=== PATIENT | female | born 2000 | race Caucasian/White ===

== ENCOUNTER 2020-09-14 09:05 | Outpatient (CLI) | payer OTHER, SELFPAY ==
[2020-09-14 09:26] LABS: Hematocrit 34.9 % (35.0-49.0); Hemoglobin 11.2 g/dL (12.0-15.0); Mean Corpuscular HGB Conc 32.1 g/dL (32.0-36.0); Mean Corpuscular Hemoglobin 30.4 pg (27.0-31.0); Mean Corpuscular Volume 94.8 fL (78.0-102.0); Mean Platelet Volume 9.7 fl (9.2-11.8); Platelet Count Result 329 K/mm3 (150-420); Red Blood Count 3.68 M/mm3 (4.20-5.40); Red Cell Distribution Width 12.3 % (11.6-14.4); White Blood Count 9.4 K/mm3 (4.8-10.8)
[2020-09-14 09:37] LABS: INR 1.5
[2020-09-14 10:05] LABS: Alanine Aminotransferase 78 U/L (14-59); Albumin Level 2.9 g/dL (3.4-5.0); Alkaline Phosphatase 119 U/L (46-116); Anion Gap 7 mmol/L (8-16); Aspartate Amino Transferase 25 U/L (15-37); Bilirubin,Total 0.3 mg/dL (0.00-1.00); Blood Urea Nitrogen 12 mg/dL (7-18); Calcium 9.1 mg/dL (8.5-10.1); Carbon Dioxide 30 mmol/L (21-32); Chloride 104 mmol/L (98-108); Estimated Glomerular Filt Rate > 60; Glucose 94 mg/dL (70-99); Osmolality Calculated 291 mOsm/kg (285-295); Potassium 3.9 mmol/L (3.5-5.1); Sodium 141 mmol/L (136-145); Total Protein 6.7 g/dL (6.4-8.2)
[2020-09-16 21:12] LABS: Antithrombin III Activity 102 % normal (80-135)
== END 2020-09-14 09:06 | disposition home or self-care (01) ==
PROVIDERS: PCP Nurse Practitioner Family; Visit Provider Nurse Practitioner Family
DX: I26.99 Other pulmonary embolism without acute cor pulmonale (principal); D68.59 Other primary thrombophilia; O99.119 Other diseases of the blood and blood-forming organs and certain disorders involving the immune mechanism complicating pregnancy, unspecified trimester; D69.6 Thrombocytopenia, unspecified
CPT/HCPCS: 36415; 80053; 81241; 85027; 85300; 85303; 85306; 85610

== ENCOUNTER 2020-09-20 13:45 | Outpatient (CLI) | payer OTHER, SELFPAY ==
--- NOTE | ~2020-09-20 | XR_ITS ---
EXAMINATION: XR chest 2V DATE: 09/20/2020 14:16 INDICATION: Shortness of breath. Pulmonary embolism. TECHNIQUE: Frontal and lateral views of the chest were obtained on 3 radiographs. COMPARISON: None. FINDINGS: There are airspace opacities at right lung base. There is a small right pleural effusion. T he pneumothorax. The heart size is normal. IMPRESSION: 1. Airspace opacities at right lung base, consistent with atelectasis versus pneumonia versus infarct . 2. Small right pleural effusion. Reviewed, dictated and finalized at location B. ATRIC PHYSICIAN IMPRESSION: 1. Airspace opacities at right lung base, consistent with atelectasis versus pn eumonia versus infarct. 2. Small right pleural effusion.
[2020-09-20 14:01] LABS: Basophils Absolute Auto 0.05 K/mm3 (0.00-0.10); Basophils Percent Auto 0.4 % (0.0-1.0); Eosinophils Absolute Auto 0.28 K/mm3 (0.02-0.50); Eosinophils Percent Auto 2.4 % (1.0-6.0); Hematocrit 38.4 % (35.0-49.0); Hemoglobin 12.5 g/dL (12.0-15.0); Immature Granulocyte Absolute 0.02 K/mm3 (0.00-0.00); Immature Granulocyte Percent A 0.2 % (0.0-0.0); Lymphocytes Absolute Auto 2.16 K/mm3 (1.10-4.50); Lymphocytes Percent Auto 18.2 % (18.0-42.0); Mean Corpuscular HGB Conc 32.6 g/dL (32.0-36.0); Mean Corpuscular Hemoglobin 30.2 pg (27.0-31.0); Mean Corpuscular Volume 92.8 fL (78.0-102.0); Mean Platelet Volume 9.7 fl (9.2-11.8); Monocytes Percent Auto 6.7 % (2.0-11.0); Neutrophils Absolute Auto 8.6 K/mm3 (1.7-7.2); Neutrophils Percent Auto 72.1 % (50.0-70.0); Platelet Count Result 415 K/mm3 (150-420); Red Blood Count 4.14 M/mm3 (4.20-5.40); Red Cell Distribution Width 12.1 % (11.6-14.4); White Blood Count 11.9 K/mm3 (4.8-10.8)
[2020-09-20 14:26] LABS: INR 1.6; Prothrombin Time 17.4 Seconds (9.50-12.10)
[2020-09-20 14:50] LABS: Alanine Aminotransferase 41 U/L (14-59); Albumin Level 3.5 g/dL (3.4-5.0); Alkaline Phosphatase 114 U/L (46-116); Amylase 38 U/L (25-115); Anion Gap 11 mmol/L (8-16); Aspartate Amino Transferase 19 U/L (15-37); Bilirubin,Total 0.2 mg/dL (0.00-1.00); Blood Urea Nitrogen 12 mg/dL (7-18); Calcium 9.7 mg/dL (8.5-10.1); Carbon Dioxide 27 mmol/L (21-32); Chloride 103 mmol/L (98-108); Estimated Glomerular Filt Rate > 60; Glucose 85 mg/dL (70-99); Lipase 128 U/L (73-393); Osmolality Calculated 290 mOsm/kg (285-295); Potassium 4.2 mmol/L (3.5-5.1); Sodium 141 mmol/L (136-145); Total Protein 7.5 g/dL (6.4-8.2)
== END 2020-09-20 13:46 | disposition home or self-care (01) ==
PROVIDERS: PCP Nurse Practitioner Family; Visit Provider Nurse Practitioner Family
DX: I26.99 Other pulmonary embolism without acute cor pulmonale (principal); R10.11 Right upper quadrant pain
CPT/HCPCS: 36415; 71046; 80053; 82150; 83690; 85025; 85610

== ENCOUNTER 2020-12-21 14:18 | Outpatient (RCR) | payer OTHER, SELFPAY ==
[2020-09-27 12:06] LABS: INR 2.1; Prothrombin Time 21.3 Seconds (9.50-12.10)
[2020-10-04 15:41] LABS: INR 2.3; Prothrombin Time 23.6 Seconds (9.50-12.10)
[2020-10-12 12:28] LABS: INR 1.6; Prothrombin Time 16.4 Seconds (9.50-12.10)
[2020-10-21 14:02] LABS: INR 1.9; Prothrombin Time 19.5 Seconds (9.50-12.10)
[2020-11-04 13:32] LABS: INR 1.2; Prothrombin Time 13.1 Seconds (9.50-12.10)
[2020-11-08 14:43] LABS: INR 1.1
[2020-11-18 16:27] LABS: INR 2.4; Prothrombin Time 24.1 Seconds (9.50-12.10)
[2020-12-09 17:53] LABS: INR 1.3
[2020-12-21 14:59] LABS: INR 1.8; Prothrombin Time 18.7 Seconds (9.50-12.10)
== END 2020-12-26 23:59 | disposition home or self-care (01) ==
LOC: CHSLAB 14:18
PROVIDERS: PCP Nurse Practitioner Family; Visit Provider Nurse Practitioner Family
DX: D68.51 Activated protein C resistance (principal); D68.59 Other primary thrombophilia; O99.119 Other diseases of the blood and blood-forming organs and certain disorders involving the immune mechanism complicating pregnancy, unspecified trimester; D69.6 Thrombocytopenia, unspecified
CPT/HCPCS: 36415; 85610

== ENCOUNTER 2021-01-09 10:58 | Outpatient (NON) | payer OTHER, SELFPAY ==
[2021-01-09 11:35] LABS: Prothrombin Time 21.1 Seconds (9.50-12.10)
== END 2021-01-09 10:59 | disposition home or self-care (01) ==
LOC: CHSLAB 11:00
PROVIDERS: PCP Nurse Practitioner Family; Visit Provider Nurse Practitioner Family
DX: D68.59 Other primary thrombophilia (principal)
CPT/HCPCS: 36415; 85610

== ENCOUNTER 2021-03-01 16:59 | Outpatient (RCR) | payer OTHER, SELFPAY ==
[2021-01-05 17:51] LABS: INR 1.5; Prothrombin Time 16.1 Seconds (9.50-12.10)
[2021-03-01 17:25] LABS: INR 1.1; Prothrombin Time 11.9 Seconds (9.50-12.10)
== END 2021-04-05 23:59 | disposition home or self-care (01) ==
LOC: CHSLAB 16:59
PROVIDERS: PCP Nurse Practitioner Family; Visit Provider Nurse Practitioner Family
DX: D68.51 Activated protein C resistance (principal); D68.59 Other primary thrombophilia; O99.119 Other diseases of the blood and blood-forming organs and certain disorders involving the immune mechanism complicating pregnancy, unspecified trimester; D69.6 Thrombocytopenia, unspecified
CPT/HCPCS: 36415; 85610

== ENCOUNTER 2021-06-13 13:25 | Outpatient (CLI) | payer OTHER, SELFPAY ==
--- NOTE | ~2021-06-13 | US_ITS ---
EXAMINATION: US venous doppler LE RT EXAM DATE: 06/13/2021 14:00 INDICATION: M79.604 - Pain in right leg. TECHNIQUE: Multiple grayscale, color flow and Doppler images of the right lower extremity deep venous system were obtained and reviewed. There is no prior study for comparison. FINDINGS: The right common femoral, femoral and profunda veins demonstrate normal color flow, respira tory variation, augmentation and compressibility. Compressibility, color flow confirmed within the r ight popliteal, posterior tibial, peroneal, and greater saphenous veins. IMPRESSION: No right lower extremity deep venous thrombosis. Reviewed, dictated and finalized at location A.
--- NOTE | 2021-06-13 13:29 | ECG_ITS ---
Measurements Intervals [place] Rate: 52 P: 37 AK: 126 QRS: 79 QRSD: 85 T: 43 QT: 423 QTc: 394 Interpretive Statements SINUS BRADYCARDIA WITH MARKED SINUS ARRHYTHMIA BORDERLINE T WAVE ABNORMALITY- ANTERIOR LEADS MINIMAL Q WAVES- INF/LAT LEADS BORDERLINE ECG Electronically Signed On 06-13-2021 14:08:47 CDT by Mac Muir D.O.
[2021-06-13 13:54] LABS: Prothrombin Time 21.1 Seconds (9.50-12.10)
== END 2021-06-13 13:26 | disposition home or self-care (01) ==
LOC: CHSIMG 13:29
PROVIDERS: PCP Nurse Practitioner Family; Visit Provider Nurse Practitioner Family
DX: I49.9 Cardiac arrhythmia, unspecified (principal); D68.51 Activated protein C resistance; D68.59 Other primary thrombophilia; O99.119 Other diseases of the blood and blood-forming organs and certain disorders involving the immune mechanism complicating pregnancy, unspecified trimester; D69.6 Thrombocytopenia, unspecified; M79.604 Pain in right leg
CPT/HCPCS: 36415; 85610; 93005; 93971

== ENCOUNTER 2021-06-28 14:19 | Outpatient (CLI) | payer OTHER, SELFPAY ==
[2021-06-28 14:33] LABS: Basophils Absolute Auto 0.06 K/mm3 (0.00-0.10); Basophils Percent Auto 0.5 % (0.0-1.0); Eosinophils Absolute Auto 0.23 K/mm3 (0.02-0.50); Eosinophils Percent Auto 1.9 % (1.0-6.0); Hematocrit 44.8 % (35.0-49.0); Hemoglobin 14.9 g/dL (12.0-15.0); Immature Granulocyte Absolute 0.02 K/mm3 (0.00-0.00); Immature Granulocyte Percent A 0.2 % (0.0-0.0); Lymphocytes Absolute Auto 2.44 K/mm3 (1.10-4.50); Lymphocytes Percent Auto 19.7 % (18.0-42.0); Mean Corpuscular HGB Conc 33.3 g/dL (32.0-36.0); Mean Corpuscular Hemoglobin 30.5 pg (27.0-31.0); Mean Corpuscular Volume 91.6 fL (78.0-102.0); Mean Platelet Volume 11.2 fl (9.2-11.8); Monocytes Absolute Auto 0.79 K/mm3 (0.10-0.90); Monocytes Percent Auto 6.4 % (2.0-11.0); Neutrophils Absolute Auto 8.8 K/mm3 (1.7-7.2); Neutrophils Percent Auto 71.3 % (50.0-70.0); Platelet Count Result 274 K/mm3 (150-420); Red Blood Count 4.89 M/mm3 (4.20-5.40); Red Cell Distribution Width 12.4 % (11.6-14.4); White Blood Count 12.4 K/mm3 (4.8-10.8)
[2021-06-28 14:53] LABS: Prothrombin Time 10.9 Seconds (9.50-12.10)
[2021-06-28 15:16] LABS: Alanine Aminotransferase 34 U/L (14-59); Albumin Level 4.2 g/dL (3.4-5.0); Alkaline Phosphatase 73 U/L (46-116); Anion Gap 11 mmol/L (8-16); Aspartate Amino Transferase 14 U/L (15-37); Bilirubin,Total 0.3 mg/dL (0.00-1.00); Blood Urea Nitrogen 16 mg/dL (7-18); Carbon Dioxide 28 mmol/L (21-32); Chloride 103 mmol/L (98-108); Estimated Glomerular Filt Rate > 60; Glucose 92 mg/dL (70-99); Magnesium 2.2 mg/dL (1.8-2.4); Osmolality Calculated 295 mOsm/kg (285-295); Potassium 4.4 mmol/L (3.5-5.1); Sodium 142 mmol/L (136-145); Thyroid Stimulating Hormone 2.16 uIU/mL (0.36-3.74); Total Protein 7.5 g/dL (6.4-8.2)
--- NOTE | 2021-07-03 10:28 | WPDHOLTEREM ---
Holter/Event Monitor Holter/Event Monitor Date of procedure: 06/28/21 Holter/Event Procedure: 48 Hr Holter Monitor Indications: Syncope Conclusion: 1. 48 hour holter monitor on 06/28/21. 2. Underlying rhythm is sinus rhythm with sinus arrhythmia. HR range 41-156 bpm; average HR 76 bpm. 3. There are 2,440 premature supraventricular complexes, 647 supraventricular couplets, 3 supraventricular bigeminy and 217 supraventricular trigeminy. No supraventricular tachycardia. 4. There are 6 premature ventricular complexes. No ventricular tachycardia. 5. No sinoatrial or atrioventricular blocks. The longest pause is 2.2 seconds at 01:37. 6. Patient reports symptoms of shortness of breath, spotty vision and blurry vision, and headache which demonstrate sinus rhythm with sinus arrhythmia, HR range 48-107 bpm.
== END 2021-06-28 14:20 | disposition home or self-care (01) ==
PROVIDERS: PCP Nurse Practitioner Family; Visit Provider Nurse Practitioner Family
DX: R55 Syncope and collapse (principal); I26.99 Other pulmonary embolism without acute cor pulmonale; E83.42 Hypomagnesemia
CPT/HCPCS: 36415; 80053; 83735; 84443; 85025; 85610; 93225; 93226

== ENCOUNTER 2021-07-19 09:50 | Outpatient (RCR) | payer OTHER, SELFPAY ==
[2021-04-24 17:34] LABS: INR 2.6; Prothrombin Time 26.7 Seconds (9.50-12.10)
[2021-05-02 18:30] LABS: INR 3.2; Prothrombin Time 32.1 Seconds (9.50-12.10)
[2021-07-19 10:23] LABS: INR 3.6; Prothrombin Time 36.6 Seconds (9.50-12.10)
== END 2021-07-23 23:59 | disposition home or self-care (01) ==
LOC: CHSLAB 09:50
PROVIDERS: PCP Nurse Practitioner Family; Visit Provider Nurse Practitioner Family
DX: D68.51 Activated protein C resistance (principal); D68.59 Other primary thrombophilia; O99.119 Other diseases of the blood and blood-forming organs and certain disorders involving the immune mechanism complicating pregnancy, unspecified trimester; D69.6 Thrombocytopenia, unspecified
CPT/HCPCS: 36415; 85610

== ENCOUNTER 2021-08-17 12:33 | Outpatient (CLI) | payer OTHER, SELFPAY ==
--- NOTE | 2021-08-17 12:37 | ECHO_ITS ---
Patient Info Name: Jian Lira Age: 21 years : 2000 Gender: Female Ht: 61 in Wt: 150 lbs BSA: 1.73 m2 HR: 58 bpm BP: 125 / 83 mmHg Technical Quality: Good Exam Date: 08/17/2021 12:48 PM Exam Location: [facility] Patient Status: Outpatient Admit Date: 08/17/2021 Staff Ordering Physician: Mac Muir DO Mental Health Orderly: Regina Alcazar RDCS Attending Provider: Mac Muir DO Referring Physician: Wood DAVIS; Exam Type: CA echo doppler color flow Study Info Indications R55 - Syncope and collapse Complete two-dimensional, color flow and Doppler transthoracic echocardiogram is performed. Summary 1. Complete two-dimensional, color flow and Doppler transthoracic echocardiogram is performed. 2. Left ventricular chamber dimension is normal. 3. Left ventricular systolic function is normal, estimated at 60-65%. 4. The left ventricular diastolic function is normal. 5. E/e' 6 is not elevated. 6. No pulmonary hypertension, estimated pulmonary arterial systolic pressure is 25 mmHg. Left Ventricle E/e' 6 is not elevated. Left ventricular chamber dimension is normal. Left ventricular systolic function is normal, estimated at 60-65%. The left ventricular diastolic function is normal. Right Ventricle Right ventricular chamber dimension is normal. Right ventricular systolic function is normal. Left Atria Left atrial chamber dimension is normal. Right Atria Right atrial chamber dimension is normal. Aortic Valve The aortic valve is trileaflet. There is no aortic valve stenosis. There is no aortic valve regurgitation. Pulmonic Valve There is no pulmonic regurgitation. Mitral Valve There is no mitral valve stenosis. There is no mitral valve regurgitation. Tricuspid Valve There is no tricuspid valve regurgitation. No pulmonary hypertension, estimated pulmonary arterial systolic pressure is 25 mmHg. Pericardium/Pleural There is no pericardial effusion. Inferior Vena Cava Normal inferior vena cava with >50% collapse upon inspiration consistent with normal right atrial pressure, 5 mmHg. Aorta The aortic root size at the sinus of Valsalva is normal. Left Ventricular Outflow Tract Name Value Normal LVOT 2D LVOT Diameter 2.0 cm LVOT Doppler LVOT Peak Gradient 5 mmHg LVOT Mean Gradient 3 mmHg LVOT VTI 25 cm LVOT VTI/AV VTI Ratio 0.8 LVOT Stroke Volume 75 ml LVOT CO 4.1 l/min LVOT CI 2.4 l/min/m2 Pulmonic Valve Name Value Normal RVOT Doppler RVOT Peak Gradient 2 mmHg PV Doppler PV Peak Gradient
== END 2021-08-17 12:34 | disposition home or self-care (01) ==
LOC: ANHCARD 12:35
PROVIDERS: PCP Nurse Practitioner Family; Visit Provider Internal Medicine Cardiovascular Disease
DX: R55 Syncope and collapse (principal)
CPT/HCPCS: 93306

== ENCOUNTER 2021-08-17 16:11 | Outpatient (CLI) | payer OTHER, SELFPAY ==
[2021-08-17 16:28] LABS: Basophils Absolute Auto 0.07 K/mm3 (0.00-0.10); Basophils Percent Auto 0.5 % (0.0-1.0); Eosinophils Absolute Auto 0.19 K/mm3 (0.02-0.50); Eosinophils Percent Auto 1.3 % (1.0-6.0); Hematocrit 45.4 % (35.0-49.0); Hemoglobin 14.7 g/dL (12.0-15.0); Immature Granulocyte Absolute 0.07 K/mm3 (0.00-0.00); Immature Granulocyte Percent A 0.5 % (0.0-0.0); Lymphocytes Absolute Auto 2.04 K/mm3 (1.10-4.50); Lymphocytes Percent Auto 14.5 % (18.0-42.0); Mean Corpuscular HGB Conc 32.4 g/dL (32.0-36.0); Mean Corpuscular Hemoglobin 30.3 pg (27.0-31.0); Mean Corpuscular Volume 93.6 fL (78.0-102.0); Mean Platelet Volume 11.2 fl (9.2-11.8); Monocytes Absolute Auto 0.66 K/mm3 (0.10-0.90); Monocytes Percent Auto 4.7 % (2.0-11.0); Neutrophils Absolute Auto 11.1 K/mm3 (1.7-7.2); Neutrophils Percent Auto 78.5 % (50.0-70.0); Platelet Count Result 276 K/mm3 (150-420); Red Blood Count 4.85 M/mm3 (4.20-5.40); White Blood Count 14.1 K/mm3 (4.8-10.8)
[2021-08-17 17:08] LABS: Free T4 Free Thyroxine 0.96 ng/dL (0.76-1.46); Iron 71 ug/dL (50-170); Thyroid Stimulating Hormone 1.26 uIU/mL (0.36-3.74)
== END 2021-08-17 16:12 | disposition home or self-care (01) ==
LOC: CHSLAB 16:13
PROVIDERS: PCP Nurse Practitioner Family; Visit Provider Nurse Practitioner Family
DX: L65.9 Nonscarring hair loss, unspecified (principal); R63.5 Abnormal weight gain
CPT/HCPCS: 36415; 83540; 84439; 84443; 85025; 85610

== ENCOUNTER 2021-09-22 11:20 | Outpatient (RCR) | payer OTHER, SELFPAY ==
[2021-08-07 14:51] LABS: INR 2.6; Prothrombin Time 26.3 Seconds (9.50-12.10)
[2021-08-21 09:40] LABS: INR 2.5; Prothrombin Time 25.6 Seconds (9.50-12.10)
[2021-09-22 11:56] LABS: Prothrombin Time 49.5 Seconds (9.50-12.10)
== END 2021-11-05 23:59 | disposition home or self-care (01) ==
LOC: CHSLAB 11:20
PROVIDERS: PCP Nurse Practitioner Family; Visit Provider Nurse Practitioner Family
DX: D68.51 Activated protein C resistance (principal); D68.59 Other primary thrombophilia; O99.119 Other diseases of the blood and blood-forming organs and certain disorders involving the immune mechanism complicating pregnancy, unspecified trimester; D69.6 Thrombocytopenia, unspecified
CPT/HCPCS: 36415; 85610

== ENCOUNTER 2021-12-13 10:04 | Outpatient (CLI) | payer OTHER, SELFPAY ==
[2021-12-13 10:27] LABS: Hemoglobin A1C 5.5 % (<5.7)
[2021-12-13 10:33] LABS: Prothrombin Time 21.1 Seconds (9.50-12.10)
== END 2021-12-13 10:05 | disposition home or self-care (01) ==
LOC: CHSLAB 10:07
PROVIDERS: PCP Nurse Practitioner Family; Visit Provider Nurse Practitioner Family
DX: I26.99 Other pulmonary embolism without acute cor pulmonale (principal); R73.09 Other abnormal glucose
CPT/HCPCS: 36415; 83036; 85610

== ENCOUNTER 2022-02-07 11:09 | Outpatient (RCR) | payer OTHER, SELFPAY ==
[2021-12-05 18:18] LABS: INR 1.4; Prothrombin Time 15.1 Seconds (9.50-12.10)
[2021-12-20 13:04] LABS: INR 3.5
[2021-12-29 12:02] LABS: INR 3.7; Prothrombin Time 37.6 Seconds (9.50-12.10)
[2022-01-05 08:47] LABS: INR 1.5
[2022-02-07 11:32] LABS: Prothrombin Time 20.9 Seconds (9.50-12.10)
== END 2022-03-05 23:59 | disposition home or self-care (01) ==
LOC: CHSLAB 11:09
PROVIDERS: PCP Nurse Practitioner Family; Visit Provider Nurse Practitioner Family
DX: I26.99 Other pulmonary embolism without acute cor pulmonale (principal)
CPT/HCPCS: 36415; 85610

== ENCOUNTER 2022-02-20 15:09 | Outpatient (CLI) | payer OTHER, SELFPAY ==
[2022-02-20 15:36] LABS: INR 2.1; Prothrombin Time 21.6 Seconds (9.50-12.10)
== END 2022-02-20 15:10 | disposition home or self-care (01) ==
LOC: CHSLAB 15:11
PROVIDERS: PCP Nurse Practitioner Family; Visit Provider Nurse Practitioner Family
DX: I26.99 Other pulmonary embolism without acute cor pulmonale (principal)
CPT/HCPCS: 36415; 85610

== ENCOUNTER 2022-03-08 08:02 | Outpatient (CLI) | payer OTHER, SELFPAY ==
--- NOTE | ~2022-03-08 | NM_ITS ---
EXAMINATION: NM hepatobiliary wo pharm DATE: 03/08/2022 10:07 INDICATION: Epigastric pain COMPARISON: None. TECHNIQUE: 4.8 mCi Tc-99m mebrofenin (Choletec) was administered intravenously. Scintigraphic images of the abdomen were obtained for one hour and 20 minutes. FINDINGS: There is normal clearance of radiotracer from the blood pool. There is homogeneous tracer uptake by t he liver. Activity progresses to the bowel and gallbladder. Majority of the excreted activity extend s into the small bowel with only a small amount of activity present within the gallbladder, insuffici ent for accurate assessment of ejection fraction. IMPRESSION: 1. Normal hepatic clearance of activity with small amount of activity seen in the gallbladder which argues against acute cholecystitis. Reviewed, dictated and finalized at location A.
== END 2022-03-08 08:03 | disposition home or self-care (01) ==
PROVIDERS: PCP Nurse Practitioner Family; Visit Provider Internal Medicine Gastroenterology
DX: R10.9 Unspecified abdominal pain (principal)
CPT/HCPCS: 78226; A9537

== ENCOUNTER 2022-03-28 00:50 | Day surgery (SDC) | payer OTHER, SELFPAY ==
[2022-03-21 11:49] VITALS: BMI 33.0
--- NOTE | 2022-03-28 11:09 | WPDANESEPPF ---
Anes - Initial Pre Proc Eval Procedure: Operation Date: 03/28/22 14:00 Proposed Procedures p Esophagogastroduodenoscopy - Arjun Puente MD Date/Time: 03/28/22 11:09 Surgeon: Arjun Puente MD Pre Op Diagnosis: nausea, vomiting, epigastric pain Patient Data Age: 21 Gender: F Height: 1.57 m Weight: 82 kg Allergies Allergy/AdvReac Type Severity Reaction Status Date / Time No Known Allergies Allergy Mild Verified 03/28/22 12:58 Home Medications Medication Instructions Recorded Confirmed Type albuterol sulfate 90 mcg/actuation 2 puff inhalation Q4H PRN 09/14/20 03/28/22 History aerosol inhaler shortness of breath or wheezing hydroxyzine HCl 25 mg tablet 25 mg PO TID PRN anxiety #20 tabs 08/17/21 03/28/22 Rx multivitamin with minerals 1 tablet PO DAILY #30 tabs 08/17/21 03/28/22 Rx (Hair,Skin and Nails tablet) warfarin 2 mg tablet 2 mg PO DAILY #90 tabs 01/24/22 03/28/22 Rx omeprazole 40 mg capsule,delayed 40 mg PO BID 03/21/22 03/28/22 History release warfarin 10 mg tablet 10 mg PO DAILY 03/21/22 03/28/22 History Patient hx anesthesia problems: none Family hx anesthesia problems: none Results Review: All pre-operative results and documents have been reviewed as part of the pre-operative evaluation. [facility] Past Medical History Medical History Heterozygous factor V Leiden mutation Hypercoagulopathy Nausea hypertension Pulmonary embolism Thrombocytopenia affecting Surgical History Surgical History History of tonsillectomy and adenoidectomy History of tympanostomy tube placement Family History Family History Father Cerebrovascular accident Grandparent Heart disease Social History Social History Smoking status: Never smoker Alcohol intake: current Alcohol use details: RARE Substance use: never Substance use type: does not use Additional living arrangements comments: boyfriend 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 Informed Consent: The patient's anesthetic plan and its attendant risks and benefits were discussed with the patient/family/POA. Questions were solicited and answers provided to the satisfaction of the patient/family/POA.
[2022-03-28 13:02] VITALS: BP 113/66; PULSE 140; RESP 18; TEMP 36.4; O2SAT 100
--- NOTE | 2022-03-28 13:04 | SUR.PREOP ---
DR NASCIMENTO NOTIFIED OF PT'S VITAL SIGNS, BLOOD PRESSURE 113/66, HEARTRATE 140. PT HAS NO COMPLAINTS OR CONCERNS. NO NEW ORDERS RECEIVED. DR NASCIMENTO SEEING PT.
[2022-03-28] MEDS: LACTATED RINGERS 1,000 ML 150 ML IV CONT (13:09)
--- NOTE | 2022-03-28 13:38 | PM.HPGS ---
History of Present Illness History of Present Illness Consent: Risks, benefits, and alternatives have been discussed and questions answered. Patient agrees to proceed with procedure. Chief complaint: nausea, vomiting, epigastric pain Narrative: Jian Lira is a 21 year old female with intermittent pain in epigastric that radiates to side and back, also had abnormal hida scan, never had egd and omeprazole is not helping Review of Systems Constitutional: Constitutional: Denies headache(s) and Denies weakness Eyes: Eyes: Denies blurry vision ENT: Reports Normal hearing present, Denies headache(s) and Denies neck pain Cardiovascular: Cardiovascular: Denies chest pain and Denies dyspnea Respiratory: Respiratory: Denies dyspnea Gastrointestinal: Gastrointestinal: Reports no additional gastrointestinal complaints Genitourinary: Genitourinary: Denies dysuria Musculoskeletal: Musculoskeletal: Denies neck pain Integumentary/Breasts: Skin/Breast: Denies dry skin Neurologic: Reports Normal hearing present, Denies headache(s) and Denies weakness Psychiatric: Psychiatric: Denies anxiety Endocrine: Endocrine: Denies change in body appearance Hematologic/Lymphatic: Hematologic/Lymphatic: Denies easy bleeding Allergic/Immunologic: Allergic/Immunologic: Denies urticaria PMFSH Past Medical History Medical History Heterozygous factor V Leiden mutation Hypercoagulopathy Nausea hypertension Pulmonary embolism Thrombocytopenia affecting Surgical History Surgical History History of tonsillectomy and adenoidectomy History of tympanostomy tube placement Family History Family History Father Cerebrovascular accident Grandparent Heart disease Social History Social History Smoking status: Never smoker Alcohol intake: current Alcohol use details: RARE Substance use: never Substance use type: does not use Additional living arrangements comments: boyfriend 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 Meds Home Medications and Allergies Home Medications Medication Instructions Recorded Confirmed Type albuterol sulfate 90 mcg/actuation 2 puff inhalation Q4H PRN 09/14/20 03/28/22 History aerosol inhaler shortness of breath or wheezing hydroxyzine HCl 25 mg tablet 25 mg PO TID PRN anxiety #20 tabs 08/17/21 03/28/22 Rx multivitamin with minerals 1 tablet PO DAILY #30 tabs 08/17/21 03/28/22 Rx (Hair,Skin and Nails tablet) warfarin 2 mg tablet 2 mg PO DAILY #90 tabs 01/24/22 03/28/22 Rx omeprazole 40 mg capsule,delayed 40 mg PO BID 03/21/22 03/28/22 History release warfarin 10 mg tablet 10 mg PO DAILY 03/21/22 03/28/22 History Allergies Allergy/AdvReac Type Severity Reaction Status Date / Time No Known Allergies Allergy Mild Verified 03/28/22 12:58 Vital Signs Vital Signs - 24 hr 03/28/22 13:02 Temperature 97.6 F Pulse Rate 140 H Respiratory Rate 18 Blood Pressure 113/66 Pulse Oximetry 100 Oxygen Delivery Room Air Exam Const: General: comfortable and no acute distress HENMT: General nose exam: Normal nares present Eyes: General: appearance normal, both eyes and all related structures Neck: Neck: no JVD Resp: Auscultation: clear to auscultation bilaterally Cardio: Rate: regular rate Rhythm: regular rhythm GI: Inspection: non-distended GI Palp: Yes Soft to palpation Skin: General skin exam: normal color Neuro: General: gait normal Speech: normal speech Extrem: General: normal to inspection Psych: Mental Status: mental status grossly normal Assessment and Plan Assessment and plan (1) Nausea: Code(s): R11.0 - Nausea Status: Acute As
[2022-03-28 13:59] VITALS: BP 123/103; PULSE 75; RESP 24; O2SAT 90
[2022-03-28 14:09] VITALS: BP 124/59; PULSE 76; RESP 17; O2SAT 96
[2022-03-28 14:19] VITALS: BP 124/59; PULSE 69; RESP 21; O2SAT 95
== END 2022-03-28 14:30 | disposition home or self-care (01) ==
PROVIDERS: PCP Nurse Practitioner Family; Visit Provider Internal Medicine Gastroenterology
PROC: 0DJ08ZZ Inspection of Upper Intestinal Tract, Via Natural or Artificial Opening Endoscopic (ICD-10-PCS; CPT 43235; principal; 2022-03-28 14:00)
DX: R11.0 Nausea (principal); K80.10 Calculus of gallbladder with chronic cholecystitis without obstruction; Z79.01 Long term (current) use of anticoagulants; Z79.51 Long term (current) use of inhaled steroids; K29.50 Unspecified chronic gastritis without bleeding; R10.13 Epigastric pain; Z86.711 Personal history of pulmonary embolism; D68.51 Activated protein C resistance; E66.9 Obesity, unspecified; Z68.37 Body mass index [BMI] 37.0-37.9, adult
CPT/HCPCS: 43239; 88305; J2001; J2704; J7120

== ENCOUNTER 2022-03-29 02:22 | Day surgery (SDC) | payer OTHER, SELFPAY ==
[2022-03-28 11:22] VITALS: BMI 32.9
--- NOTE | 2022-03-28 11:29 | PC.NURSE ---
Report to the Outpatient Waiting Room, entrance under the green pavilion located off [facility], at time 8:30 on date 03/29/22. OR Time: 10:30. - You and your visitor will be asked a series of questions to screen for COVID 19 for your protection. - Only one visitor is allowed at this time. - The patient visitor is requested to leave or wait in car when not with patient. - A mask is required within the hospital. Patients may have clear liquids (water, carbonated beverages, clear teas, apple juice) until 3 hours prior to surgery (7:30) with a maximum of 20 ounces. - No food from midnight until time of surgery Take the following medications with a SIP of water the morning of surgery: HYDROXYZINE AND INHALER (IF NEEDED) Medications to discontinue per physician: VITAMINS, WARFARIN Date to take last dose: DO NOT RESTART UNTIL AFTER SURGERY Please no make-up, nail guatemalan, hairspray, perfume, deodorant, or body powder the day of surgery. No jewelry (including any body piercings) or valuables the day of surgery, leave them at home. Please take a shower or bath the night before, or the morning of, surgery with an antibacterial soap(HIBICLENS). Wear comfortable, loose fitting clothing. - Jewelry must be removed prior to entering the operating room. Rings and piercings that are not removed may be cut off. - The hospital will not accept responsibility for valuables. - Please leave all valuables, including medications, at home the day of surgery. If you are going home after surgery, a licensed frontload driver must drive you home. - NO public transportation without another adult. - We recommend that an adult stay with you for 24 hours following discharge. - We also recommend that you do not drive, make important decision, drink alcoholic beverages, or take any drugs that were not prescribed by your health care provider for at least 24 hours after your discharge time. Follow any additional instructions given to you from your surgeon. If you or anyone in your household have experienced Covid symptoms in the past week, please notify your surgeon or the nurse liaison at the phone number below for possible testing. Telephone instructions given to PT - MIGUELANGEL WORLEY and asked if any additional questions and then verbalized understanding. Patient advised to call surgeon office or pre surgery nurse liaison [phone] if any additional questions.
[2022-03-29] VITALS (11 sets, daily range): BP systolic 103–119; BP diastolic 61–81; PULSE 50–70; RESP 12–20; TEMP 36.6–36.7; O2SAT 94–100
[2022-03-29] MEDS: ACETAMINOPHEN 500 MG TABLET 1000 MG PO (09:40)
--- NOTE | 2022-03-29 09:45 | SUR.PREOP ---
DR CAN AWARE THAT PATIENT HAS NOSE RING SHE IS UNABLE TO TAKE OUT.
--- NOTE | 2022-03-29 09:48 | P.PNAN_ITS ---
Anes - Initial Pre Proc Eval Procedure: Operation Date: 03/29/22 10:30 Proposed Procedures p Laparoscopic Cholecystectomy - Ninfa Keller MD Date/Time: 03/29/22 09:48 Surgeon: Ninfa Keller MD Pre Op Diagnosis: cholecystitis with cholelithiasis Patient Data Age: 21 Gender: F Height: 1.57 m Weight: 91.6 kg Last Vital Signs Temp 36.7 C 03/29/22 08:56 Pulse 70 03/29/22 08:56 Resp 16 03/29/22 08:56 BP 118/81 03/29/22 08:56 Pulse Ox 98 03/29/22 08:56 O2 Del Method Room Air 03/29/22 08:56 Allergies Allergy/AdvReac Type Severity Reaction Status Date / Time No Known Allergies Allergy Mild Verified 03/29/22 08:48 Home Medications Medication Instructions Recorded Confirmed Type albuterol sulfate 90 mcg/actuation 2 puff inhalation Q4H PRN 09/14/20 03/29/22 History aerosol inhaler shortness of breath or wheezing hydroxyzine HCl 25 mg tablet 25 mg PO TID PRN anxiety #20 tabs 08/17/21 03/29/22 Rx multivitamin with minerals 1 tablet PO DAILY #30 tabs 08/17/21 03/29/22 Rx (Hair,Skin and Nails tablet) warfarin 2 mg tablet 2 mg PO DAILY #90 tabs 01/24/22 03/29/22 Rx omeprazole 40 mg capsule,delayed 40 mg PO BID 03/21/22 03/29/22 History release warfarin 10 mg tablet 10 mg PO DAILY 03/21/22 03/29/22 History Patient hx anesthesia problems: none Family hx anesthesia problems: none Results Review: All pre-operative results and documents have been reviewed as part of the pre- operative evaluation. [facility] Past Medical History Medical History Heterozygous factor V Leiden mutation Hypercoagulopathy Nausea hypertension Pulmonary embolism Thrombocytopenia affecting Surgical History Surgical History History of tonsillectomy and adenoidectomy History of tympanostomy tube placement Family History Family History Father Cerebrovascular accident Grandparent Heart disease Social History Social History Smoking status: Never smoker Alcohol intake: current Alcohol use details: RARE Substance use: never Substance use type: does not use Living arrangements: with family Additional living arrangements comments: boyfriend 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 Informed Consent: The patient's anesthetic plan and its attendant risks and benefits were discussed with the patient/family/POA. Questions were solicited and answers provided to the satisfaction of the patient/family/POA.
[2022-03-29] MEDS: KETOROLAC 15 MG/ML VIAL (*BKC) IV PUSH (09:59)
[2022-03-29] MEDS: LACTATED RINGERS 1,000 ML 30 ML IV CONT ×2 (10:03→12:47)
[2022-03-29 10:16] LABS: Alanine Aminotransferase 28 U/L (6-35); Albumin Level 4.3 g/dL (3.5-5.1); Alkaline Phosphatase 63 U/L (38-126); Amylase 51 U/L (30-110); Aspartate Amino Transferase 24 U/L (14-36); Bilirubin,Total 0.8 mg/dL (0.2-1.3); Lipase 35 U/L (23-300)
[2022-03-29 10:20] LABS: INR 1.1; Partial Thromboplastin Time 26.3 SECONDS (22.3-36.8); Prothrombin Time 13.5 Seconds (11.1-14.7)
--- NOTE | 2022-03-29 10:29 | WPDHPUPDATE1 ---
History and Physical Update Update Date/Time: 03/29/22 10:29 History and Physical has been reviewed, including an updated exam of the patient. There are NO changes in the patient's condition. Risks, benefits, and alternatives have been discussed and questions answered. Patient agrees to proceed with procedure.
[2022-03-29] MEDS: ceFAZolin 2 GM/D5W 50 ML 2 GM/50 ML BAG IVPB (10:40)
[2022-03-29] MEDS: BUPIVACAINE/EPINEPHRINE 0.25% 50 ML VIAL 30 ML INFILTRATE (10:56)
--- NOTE | 2022-03-29 11:37 | W.PM.PROC2 ---
Procedure Note - Detailed Date of Procedure 03/29/22 Pre-op Diagnosis cholecystitis with cholelithiasis Post-op Diagnosis Same Procedure Performed Laparoscopic cholecystectomy Surgeon Ninfa Keller MD Anesthesia General Indications 21-year-old female presented to the office complaining of postprandial right upper quadrant abdominal pain associated with nausea and vomiting. Workup including imaging significant for cholecystitis, cholelithiasis. Findings Cholecystitis with cholelithiasis Description of Procedure The patient was taken to the operating room placed in the supine position. After adequate induction of general anesthesia, the patient was prepped and draped in normal sterile fashion. A time-out was then performed to verify the patient's identity as well as the procedure being performed. I then made a 5 mm incision in the infraumbilical region. Through this, a Veress needle was placed into the peritoneal cavity and CO2 gas was then insufflated. After adequate pneumoperitoneum was achieved, the Veress needle was removed and a 5 mm optiview trocar was placed through this incision under direct visualization. I then placed the laparoscope through this trocar site and under direct visualization placed a further 12 mm subxiphoid port as well as 2 additional 5 mm ports in the right upper abdomen. The gallbladder was then identified and was noted to be moderately inflamed, distended, and full of gallstones. I was able to place a grasper at the dome of the gallbladder and this was retracted anterior and cephalad up over the liver. A 2nd retractor was then placed at the infundibulum and retracted laterally, this allowed visualization of the triangle of Calot. I then was able to visualize the cystic duct in its entirety from its proximal insertion into the gallbladder, to its distal junction with the common hepatic/common bile duct junction. At this point, I carefully skeletonized the proximal cystic duct with the [place] dissector. I then clipped and transected the proximal cystic duct. Next I visualized the cystic artery. Again the artery was skeletonized, clipped, and transected. I then used the Bovie cautery to take down the peritoneal attachments of the gallbladder off the liver bed. Once the gallbladder specimen was completely detached, an endo-pouch was placed through the 12 mm port site. I then placed the gallbladder specimen into the Endo pouch and removed the endo-pouch from the 12 mm port site. The specimen will now be sent to pathology for further review. I then copiously irrigated the right upper quadrant. Some mild oozing was noted in the liver bed and this was controlled with the bovie cautery. Hemostasis was noted in the liver bed, the clips were noted to be in good position on both the cystic duct stump and the cystic artery stump. No other pathology was noted in the right upper quadrant. I then moved the laparoscope to the subxiphoid port. No iatrogenic injury or other pathology was noted in the lower abdomen. I then closed the 12 mm trocar site under direct visualization using the Markie cone and 0 Vicryl suture. At this point, the abdomen was desufflated and all ports removed. All port sites were then closed with 4.O Monocryl subcuticular sutures. Dermabond was placed on each incision. The patient tolerated the procedure well, was extubated in the operating room postoperative and will be transferred to the recovery room in stable condition Estimated Blood Loss 5 Drains No Packing No Pathology Yes Complications No immediate complications Condition Stable Disposition PACU [facility] Billing Surgery - Charge Forward: Surgery Billing
[2022-03-29] MEDS: fentaNYL CITRATE INJ (*CRX) 100 MCG/2 ML VIAL 25 MCG IV PUSH ×8 (12:02→12:32)
[2022-03-29] MEDS: HYDROmorphone HCL INJ (*CRX) 1 MG/ML SYR 0.5 MG IV PUSH ×2 (12:50→12:55)
[2022-03-29] MEDS: oxyCODONE HCL (*CRX) 5 MG TAB IR PO (13:27)
[2022-03-29] MEDS: ONDANSETRON HCL ODT 4 MG TABLET PO (14:10)
== END 2022-03-29 14:11 | disposition home or self-care (01) ==
PROVIDERS: Anesthesiology; PCP Nurse Practitioner Family; Visit Provider Surgery
PROC: 0FT44ZZ Resection of Gallbladder, Percutaneous Endoscopic Approach (ICD-10-PCS; CPT 47562; principal; 2022-03-29 10:30)
DX: K80.10 Calculus of gallbladder with chronic cholecystitis without obstruction (principal); D68.51 Activated protein C resistance; Z86.711 Personal history of pulmonary embolism; Z79.51 Long term (current) use of inhaled steroids; Z79.01 Long term (current) use of anticoagulants; E66.9 Obesity, unspecified; Z68.36 Body mass index [BMI] 36.0-36.9, adult
CPT/HCPCS: 47562; 36415; 80076; 82150; 83690; 85610; 85730; 86850; 86900; 86901; 88304; A9270; J0690; J1100; J1170; J1885; J2250; J2405; J2704; J3010; J7030; J7120

== ENCOUNTER 2023-07-09 18:28 | Emergency (ER) | payer OTHER, SELFPAY ==
[2023-07-09 18:39] VITALS: BP 158/86; PULSE 81; RESP 18; TEMP 36.7; O2SAT 100
--- NOTE | 2023-07-09 19:34 | ED.GENADULT ---
HPI - General Adult General Chief complaint: Unspecified Stated complaint: tremors Time Seen by Provider: 07/09/23 19:20 History of Present Illness HPI narrative: This is a 23-year-old female with history of anxiety presenting to the ED with a chief complaint of internal tremors. this is the patient's 4th visit to an ER in the last 4 days for complaints that include anxiety, tremors and tingling of her hands and feet. Patient has a known diagnosis of anxiety and was recently started on venlafaxine by her primary care physician. However her symptoms have not started to improve yet. She denies any other complaints. no SI HI. Related Data Home Medications Medication Instructions Recorded Confirmed albuterol sulfate 90 mcg/actuation 2 puff inhalation Q4H PRN 09/14/20 04/11/22 aerosol inhaler shortness of breath or wheezing omeprazole 40 mg capsule,delayed 40 mg PO BID 03/21/22 04/11/22 release warfarin 10 mg tablet 10 mg PO DAILY 03/21/22 04/11/22 Allergies Allergy/AdvReac Type Severity Reaction Status Date / Time No Known Allergies Allergy Mild Verified 07/09/23 18:31 [facility] Past Medical History Medical History Heterozygous factor V Leiden mutation Hypercoagulopathy Nausea hypertension Pulmonary embolism Thrombocytopenia affecting Surgical History Surgical History History of tonsillectomy and adenoidectomy History of tympanostomy tube placement Hx laparoscopic cholecystectomy 03/29/22 Family History Family History Father Cerebrovascular accident Grandparent Heart disease Social History Social History Smoking status: Never smoker Alcohol intake: current Alcohol use details: RARE Substance use: never Substance use type: does not use Living arrangements: with family Additional living arrangements comments: boyfriend Occupation/Education: occupation 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 EYES: EOMI, NOSE: Atraumatic NECK: Trachea midline RESPIRATORY: No increased rate of breathing, clear to auscultation CARDIOVASCULAR: RRR, no pitting edema ABDOMINAL: Non-distended MUSCULOSKELETAl: No obvious deformities NEURO: Alert. Moving 4/4 extremities SKIN:: Warm, dry. Normal color PSYCHIATRIC: anxious, tearful Course Vital Signs Vital signs: Vital Signs Temperature 98.1 F 07/09/23 18:39 Pulse Rate 81 07/09/23 18:39 Respiratory Rate 18 07/09/23 18:39 Blood Pressure 158/86 H 07/09/23 18:39 Pulse Oximetry 100 07/09/23 18:39 Oxygen Delivery Room Air 07/09/23 18:39 Temperature 98.1 F 07/09/23 18:39 Pulse Rate 81 07/09/23 18:39 Respiratory Rate 18 07/09/23 18:39 Blood Pressure 158/86 H 07/09/23 18:39 Pulse Oximetry 100 07/09/23 18:39 Oxygen Delivery Room Air 07/09/23 18:39 Medical Decision Making MDM Narrative Medical decision making narrative: -Course: 23-year-old female with a history of anxiety presenting to the ED for the 4th day in a row for anxiety symptoms. Patient has had lab work and imaging performed at [place]. I discussed repeating these today and the limited utility of that the patient has agreed she does not want them repeated. Patient will be treated with 0.5 mg of Ativan p.o.. She has been instructed follow-up with her primary care physician. -DDX includes but is not limited to: anxiety, medication side effect, dehydration, panic disorder -Co-morbidities complicating care: anxiety, factor 5 Leiden history of PE on anticoagulation -Social determinants of health: 2-year-old child at home -Interventions: 0.5
[2023-07-09] MEDS: LORazepam (*CRX) 0.5 MG TABLET PO (19:43)
== END 2023-07-09 19:56 | disposition home or self-care (01) ==
PROVIDERS: Emergency Provider Emergency Medicine; PCP Pediatrics
DX: F41.9 Anxiety disorder, unspecified (principal)
CPT/HCPCS: 99283; A9270